=== PATIENT | male | born 1985 | race Caucasian/White ===

== ENCOUNTER 2025-04-14 16:34 | Emergency (ER) | payer OTHER, SELFPAY ==
[2025-04-14 16:34] VITALS: BP 119/78; PULSE 60; RESP 18; TEMP 36.1; O2SAT 99
--- NOTE | 2025-04-14 16:41 | ED.GENADULT ---
HPI - General Adult General Chief complaint: Urogenital-Male Stated complaint: right testicular pain Time Seen by Provider: 04/14/25 16:40 Source: patient Mode of arrival: EMS Limitations: no limitations History of Present Illness HPI narrative: The patient is a 40-year-old male with a history of right lower abdominal pain radiating to the right testicle for the past several years. He has had an extensive workup that has been negative. This has included visits with a hernia specialist, as well as several abdominal ultrasounds and CT scans of the abdomen. He most recently so an orthopedic surgeon who requested MRI of the abdomen since there is concern about nerve impingement into the nerve that radiates into the right lower quadrant and testicular region. The patient's right testicular pain started 1.5 hours ago, at approximately 1500 today. He slid out of the car seat with shorts on. The skin of his testicle caught onto the car seat and exacerbated his pain in the right testicle. Feels that there is a lump in the right testicle which is different than the left. The right testicle is larger than the left. The pain continues. There is no urinary symptoms such as hematuria urgency frequency or dysuria. No history of STDs. He has not taken any pain medications. He comes to the ER via EMS. Related Data Allergies Allergy/AdvReac Type Severity Reaction Status Date / Time No Known Allergies Allergy Verified 04/14/25 16:44 Review of Systems Review of Systems: All systems reviewed & are unremarkable except as noted in HPI and below Constitutional: Constitutional: Denies chills, Denies excessive sweating, Denies fatigue, Denies fever(s), Denies headache(s) and Denies weakness Eyes: Eyes: Denies change in vision and Denies photophobia ENT: Denies dysphagia, Denies dizziness, Denies headache(s), Denies lip swelling, Denies nasal congestion, Denies sore throat and Denies tongue swelling Cardiovascular: Cardiovascular: Denies chest pain, Denies syncope, Denies rapid heart rate and Denies dyspnea Respiratory: Respiratory: Denies cough, Denies dyspnea and Denies wheezing Gastrointestinal: Gastrointestinal: Reports abdominal pain (chronic), Denies constipation, Denies dysphagia, Denies diarrhea, Denies nausea and Denies vomiting Genitourinary: Genitourinary: Denies hematuria, Denies dysuria, Denies urinary frequency and Denies urinary urgency Comments: right testicular pain with swelling. Musculoskeletal: Musculoskeletal: Denies back pain, Denies myalgias, Denies arthralgias, Denies joint swelling and Denies numbness Integumentary/Breasts: Skin/Breast: Denies pruritus, Denies erythema and Denies rash Neurologic: Denies confusion, Denies dizziness, Denies syncope, Denies headache(s), Denies focal weakness, Denies numbness and Denies weakness Psychiatric: Psychiatric: Denies anxiety and Denies confusion Endocrine: Endocrine: Denies excessive sweating and Denies fatigue Hematologic/Lymphatic: Hematologic/Lymphatic: Denies easy bleeding and Denies easy bruising Allergic/Immunologic: Allergic/Immunologic: Denies lip swelling, Denies tongue swelling and Denies wheezing Exam Const: General: healthy appearing, no acute distress, alert and well nourished Nutritional Appearance: well nourished Orientation/consciousness: patient oriented x3 Limitations: no limitations HENMT: Head: normal to inspection Ears: external ears normal Face/Nose/Sinus: normal facial exam Face and sinus: normal facial exam Mouth: Yes moist mucous membranes Throat: posterior oropharynx normal Eyes: Conjunctivae: conjunctivae normal Pupils: Equal, round and reactive pupils present EOM: EOMs intact bilaterally Neck: Neck: normal visual inspection and no meningeal signs Chest: Chest palpation & inspection: normal inspection of the chest and no tenderness Resp: Effort & Inspection: normal respiratory effort and not labored Auscultation: clear to auscultation bilaterally, no crackles, no rhonchi and no wheezes Cardio: Rate: regular rate Rhythm: regular rhythm Heart sounds: no murmurs GI: Inspection: non-distended GI Palp: Yes Soft to palpation, No Tenderness to palpation present (GI), No Guarding due to palpation present (GI) and No Rebound tenderness present : General: Yes no CVA tenderness Male General Exam: Yes normal external exam Penis: Yes normal penis Scrotum: scrotal swelling on the right (Tenderness and pain diffusely in the right testicle especially at the epididymis) Testes: Testes normal (On the left), epididymal tenderness on the right, testicular swelling on the right and testicular tenderness on the right Back/Spine/Pelvis: Back: no CVA tenderness Cervical Spine: No Cervical spine tenderness Thoracic/Lumbar Spine: No thoracic spinal tenderness Skin: General skin exam: normal color Rashes: no rashes Wounds: no wounds Neuro: General: patient oriented x3, moves all extremities, no meningeal signs, no focal motor deficits and CN's II-XI intact bilaterally Cranial nerves: Yes Equal, round and reactive pupils present Speech: normal speech Motor exam (neuro): 5/5 motor strength present throughout Sensory Exam: normal sensation Extrem: General: normal to inspection and no clubbing, cyanosis or edema Psych: Mental Status: mental status grossly normal Affect: normal affect Course Course Emergency Course: 40-year-old male with chronic subacute right lower quadrant abdominal pain that could be from pinched nerve since the abdominal workup with CT and ultrasound has been negative. He presents now with testicular pain since 1300. On exam, he has tenderness and swelling of the right testicle which is bigger than the left. This could be epididymitis. Need to rule out testicular torsion. No urinary symptoms. ciprofloxacin Tylenol and ibuprofen administered in the ER. I spoke to Dr. Anton your provider at [facility] accepted the patient for transfer for an ultrasound of the testicle. Urinalysis did not reveal any acute findings. The patient is agreeable with the plan. All questions answered. Vital Signs Vital signs: Vital Signs Temperature 36.1 C L 04/14/25 16:34 Pulse Rate 60 04/14/25 16:34 Respiratory Rate 18 04/14/25 16:34 Blood Pressure 119/78 04/14/25 16:34 Pulse Oximetry 99 04/14/25 16:34 Oxygen Delivery Room Air 04/14/25 16:34 Temperature 36.8 C 04/14/25 17:17 Pulse Rate 82 04/14/25 17:17 Respiratory Rate 18 04/14/25 17:17 Blood Pressure 142/62 H 04/14/25 17:17 Pulse Oximetry 99 04/14/25 17:17 Oxygen Delivery Room Air 04/14/25 17:17 Medical Decision Making Vital Signs Vital Signs: Vital Signs Temperature 36.1 C L 04/14/25 16:34 Pulse Rate 60 04/14/25 16:34 Respiratory Rate 18 04/14/25 16:34 Blood Pressure 119/78 04/14/25 16:34 Pulse Oximetry 99 04/14/25 16:34 Oxygen Delivery Room Air 04/14/25 16:34 Temperature 36.8 C 04/14/25 17:17 Pulse Rate 82 04/14/25 17:17 Respiratory Rate 18 04/14/25 17:17 Blood Pressure 142/62 H 04/14/25 17:17 Pulse Oximetry 99 04/14/25 17:17 Oxygen Delivery Room Air 04/14/25 17:17 Lab Data Labs: Lab Results 04/14/25 Range/Units 16:51 Urine Color Light yellow (Yellow) Urine Appearance Clear (Clear) Urine pH 7.5 (5.0-8.0) Ur Specific [place] 1.015 (1.010-1.020) Urine Protein Negative (Negative) Urine Glucose (UA) Negative (Negative) Urine Ketones Negative (Negative) Ur Blood (Man) Negative (Negative) Urine Nitrate Negative (Negative) Urine Bilirubin Negative (Negative) Urine Urobilinogen 0.2 (0.2-1.0) mg/dL Leukocyte Esterase Rfl Negative (Negative) TRAVIS/UL Discharge Plan Discharge Clinical Impression: Epididymitis, Pain in right testicle Patient Disposition: Acute Care Hospital Condition: Stable Patient Language: Czech Follow-up/Referrals: Sean العراقي M.D. [Primary Care Provider, [facility]] Time of Disposition: 17:00
[2025-04-14 17:02] LABS: Add Urine Microscopic? NO; Appearance Urine Clear (Clear); Glucose Urine UA Negative (Negative); Leukocyte Esterase Ur Negative LEU/UL (Negative); Nitrate Urine Negative (Negative); Specific Grav Ur 1.015 (1.010-1.020)
[2025-04-14] MEDS: IBUPROFEN 400 MG TABLET 800 MG PO (17:02)
[2025-04-14] MEDS: CIPROFLOXACIN 500 MG TAB PO (17:03)
[2025-04-14] MEDS: ACETAMINOPHEN 500 MG TABLET 1000 MG PO (17:03)
--- OUTSIDE RECORDS SUMMARY | 2025-04-14 17:07 | XMS_ITS | Clinical Summary ---
Author Organization [facility] Address [address] [place] [address] Care Team Providers Care Waiter/Waitress Captain Name Role Phone Sean العراقي MD Primary Care Provider [phone] Allergies Active Allergy Reactions Criticality Noted Date Comments Sulfamethoxazole-Trimethoprim Unknown 2018 Clindamycin Unknown 02/20/2019 Medications atorvastatin (LIPITOR) 10 MG tablet 01/31/2024 Active traZODone (DESYREL) 50 MG tablet TAKE 1 TABLET BY MOUTH NIGHTLY FOR SLEEP 01/28/2024 Active Active Problems Problem Noted Date Diagnosed Date Right kidney stone 08/31/2019 Overview (08/31/2019): 4mm per patient Right inguinal pain 08/31/2019 Cervical spine pain 12/23/2018 Resolved Problems Problem Noted Date Diagnosed Date Resolved Date Thyroid nodule 04/01/2018 08/31/2019 Encounters Date Type Department Care Team Description 04/06/2025 Telephone [facility] [address] [address] Justin Mendez DO Referral from Last 3 Months Immunizations Immunization Administration Dates Next Due Tdap (Boostrix) 02/20/2023 Family History Medical History Relation Comments Diabetes Father Hypertension Father spinal stenosis Father Depression Mother Mental Health Mother Relation Status Comments Father Mother Social History Tobacco Use Types Packs/Day Years Used Date Smoking Tobacco: Never Smokeless Tobacco: Never Tobacco Cessation:Counseling Given: Not Answered Alcohol Use Standard Drinks/Week Comments Yes 0 (1 standard drink = 0.6 oz pur e alcohol) rare AUDIT-C Answer Date Recorded Frequency of Alcohol Consumption Never 02/20/2019 Average Number of Drinks Not on file 019 Frequency of Binge Drinking Not on file 01/27 Sex and Gender Information Value Date Recorded Sex Assigned at Male 08/31/2019 9:29 AM PAST DUE ACCOUNTS CLERK Legal Sex Male 8:47 PM CDT Gender Identity Male 08/31/2019 9:29 AM PAST DUE ACCOUNTS CLERK Sexual Orientation Not on file Last Filed Vital Signs Vital Sign Reading Time Taken Comments Blood Pressure 143/94 11/08/2024 11:02 PM CDT Pulse 66 11/08/2024 11:02 PM CDT Temperature 36.8 C (98.2 F) 11/08/2024 11:02 PM CDT Respiratory Rate 16 11/08/2024 11:02 PM CDT Oxygen Saturation 97% 11/08/2024 11:02 PM CDT Inhaled Oxygen Concentration - - Weight 94.8 kg (209 lb) 11/08/2024 11:02 PM CDT Height 185.4 cm (6' 1) 11/08/2024 11:02 PM CDT Body Mass Index 27.57 11/08/2024 11:02 PM CDT Plan of Treatment Health Maintenance Due Date Last Done Comments Annual Physical 02/14/1988 Hepatitis C 2003 Hepatitis B Vaccines (1 of 3 - 19+ 3-dose series) 02/14/2004 HPV Vaccines (1 - 3-dose SCDM series) 02/14/2012 PHQ-2 (Physician [place]) 06/28/2024 COVID-19 Vaccine ( season) 2025 12/26/2021, 01/02/2021, 12/12/2020 Influenza Adult (#1) 2025 DTaP, Tdap and Td Vaccines (2 - Td or Tdap) 02/20/2033 02/20/2023, 02/02/1990, 04/08/1988, Additional history exists Hepatitis A Vaccines Aged Out No long er eligible based on patient's age to complete this topic Meningococcal B Vaccine Aged Out No l onger eligible based on patient's age to complete this topic Meningococcal Vaccine Aged Out No camilo vanessa eligible based on patient's age to complete this topic Pneumococcal Vaccine: Pediatrics (0 to 5 Years) and At-Risk Patients (6 to 49 Years) Aged Out No longer eligible based on patient's age to complete this topic RSV Immunizations Under 20 Months Aged Out No longer eligible based on patient's age to complete this topic Insurance [facility] MEDICAID Care Teams Waiter/Waitress Captain Relationship Specialty Start Date End Date Sean العراقي MD [address] [place] [phone] PCP - General FAMILY PRACTICE 08/18/22
--- OUTSIDE RECORDS SUMMARY | 2025-04-14 17:07 | XMS_ITS | Encounter Summary ---
Author Organization [facility] Address [facility] [place] [address] Care Team Providers Care Engineer/Conductor Name Role Phone Konstantin England MD Primary Care Provider [phone] Abhi Parry MD Primary Care Provider Sean العراقي MD Primary Care Provider Encounter Details Date Type Department Care Team (Late st Contact Info) Description 12/03/2018 Abstract [facility] CONVERSION [address] [place] [address] , Generic Conversion, Social History Tobacco Use Types Packs/Day Years Used Date Smoking Tobacco: Never Sex and Gender Information Value Date Recorded Sex Assigned at Male 08/31/2019 9:29 AM DELIVERER PHARMACY Legal Sex Male 8:47 PM CDT Gender Identity Male 08/31/2019 9:29 AM DELIVERER PHARMACY Sexual Orientation Not on file documented as of this encounter Plan of Treatment Not on file documented as of this encounter Visit Diagnoses Not on filedocumented in this encounter Additional Health Concerns Infection Onset Date Last Indicated Resolved Time COVID-19 Rule Out 12/18/2019 12/18/2019 12/19/2019 9:15 AM CDT COVID-19 Rule Out 11/20/2020 11/20/2020 11/20/2020 1:43 PM CDT COVID-19 Rule Out 11/13/2021 11/13/2021 11/13/2021 4:37 AM CDT COVID-19 Rule Out 04/24/2024 04/24/2024 04/24/2024 10:23 PM CDT Rhinovirus 04/24/2024 04/24/2024 05/04/2024 12:3 2 AM DELIVERER PHARMACY documented as of this encounter Care Teams Engineer/Conductor Relationship Specialty Start Date End Date Konstantin England MD [address] [place] [phone] PCP - General FAMILY PRACTICE 12/20/18 11/14/20 Abhi Parry MD [address] [place] [phone] PCP - General FAMILY PRACTICE 11/15/20 08/17/22 Sean العراقي MD [address] [phone] PCP - General FAMILY PRACTICE 08/18/22 documented as of this encounter
[2025-04-14 17:17] VITALS: BP 142/62; PULSE 82; RESP 18; TEMP 36.8; O2SAT 99
== END 2025-04-14 17:30 | disposition short-term general hospital (02) ==
LOC: CHSED 17:05
PROVIDERS: Emergency Provider Emergency Medicine; PCP Family Medicine
DX: N45.1 Epididymitis (principal)
CPT/HCPCS: 81003; 99284; 99285; A9270

== ENCOUNTER 2025-04-14 18:04 | Emergency (ER) | payer OTHER, SELFPAY ==
--- NOTE | ~2025-04-14 | US_ITS ---
EXAMINATION: US scrotum doppler, 04/14/2025 18:28 CDT HISTORY: r testicular pain, r/o torsion Comparison: None Technique: Luna-scale and color Doppler images were obtained of the testes with spectral analysis to document arterial and venous flow. Findings: Right Testicle:Right testicle 4.1 x 2.7 x 3.1 cm, normal parenchyma, normal flow. Right Epidiymis:The right epididymis appears enlarged with slightly increased flow. Left Testicle: Left testicle 4.1 x 2.2 x 3.3 cm, normal parenchyma, normal flow. Left Epidiymis: Unremarkable. Normal flow. Hydrocele: A small simple appearing right hydrocele. . Varicocele: None Scrotum: Unremarkable. No skin thickening. Impression: Right epididymitis. No abscess identified. Negative for torsion Reviewed, dictated and finalized at location P. Impression: Right epididymitis. No abscess identified. Negative for torsion
[2025-04-14 17:57] VITALS: BP 143/93; PULSE 62; RESP 16; TEMP 36.5; O2SAT 100
--- NOTE | 2025-04-14 18:18 | ED_ITS ---
HPI - Male Genitourinary General Chief complaint: Urogenital-Male Stated complaint: r/o torsion Source: patient Mode of arrival: EMS Limitations: no limitations History of Present Illness HPI Narrative: This is a 40-year-old male with history of primary hyperparathyroidism who presents to the ED for testicular pain. Patient states that for the past couple days he has been having right testicular pain that has gradually been worsening. He states 5 hours ago, he was leaning over his kids carseat when he had sudden worsening of his right testicular pain that doubled him over. He was seen at outside ED and states he was sent here for further evaluation for concerns for a testicular torsion. He does report right lower quadrant pain that radiates into his right testicle. Denies dysuria, hematuria. Related Data Allergies Allergy/AdvReac Type Severity Reaction Status Date / Time clindamycin AdvReac Intermediate Diarrhea Verified 04/14/25 18:18 sulfamethoxazole (From AdvReac Intermediate Diarrhea Verified 04/14/25 18:18 Bactrim) trimethoprim (From Bactrim) AdvReac Intermediate Diarrhea Verified 04/14/25 18:18 Review of Systems Review of Systems: Gen.: Denies fevers or chills Eyes: Denies eye pain or visual change ENT: Denies congestion Respiratory: Denies shortness of breath or cough CV: Denies chest pain or palpitations GI: As per HPI as per HPI Musculoskeletal: Denies back pain or muscle pain Neuro: Denies numbness, tingling, weakness or focal weakness Skin: Denies rash Except as documented, all other systems reviewed and negative Exam Narrative: APPEARANCE: No acute distress, nontoxic, resting in bed EYES: EOMI HEENT: Normocephalic, atraumatic, OMM RESPIRATORY: No respiratory distress Clear to auscultation bilaterally with no rhonchi wheezing or rales. CARDIOVASCULAR: Regular rate and rhythm without murmurs rubs or gallops. ABDOMINAL: Soft, nontender, nondistended, no rebound or guarding : Right testicle is swollen and elevated compared to the left, there is tenderness to the inferior portion of this MUSCULOSKELETAl: Moves all extremities. No clubbing, cyanosis or edema. NEURO: Awake and alert. Following commands, speech normal, no focal deficits SKIN:: Warm, dry. No rashes lesions or abrasions PSYCHIATRIC: Normal affect/mood, Course Vital Signs Vital signs: Vital Signs Temperature 97.7 F 04/14/25 17:57 Pulse Rate 62 04/14/25 17:57 Respiratory Rate 16 04/14/25 17:57 Blood Pressure 143/93 H 04/14/25 17:57 Pulse Oximetry 100 04/14/25 17:57 Oxygen Delivery Room Air 04/14/25 17:57 Temperature 97.7 F 04/14/25 17:57 Pulse Rate 86 04/14/25 19:56 Respiratory Rate 18 04/14/25 19:56 Blood Pressure 150/85 H 04/14/25 19:56 Pulse Oximetry 99 04/14/25 19:56 Oxygen Delivery Room Air 04/14/25 17:57 MDM - Male Genitourinary MDM Narrative Medical decision making narrative: 40-year-old male presenting for right testicular pain. Patient was initially seen at outside ED and and there was concerns for torsion. Patient was started on ciprofloxacin for coverage up epididymitis. In this ED, he did have a swollen, erythematous, tender right testicle. Ultrasound right testicle was obtained that showed no evidence of torsion, was consistent with epididymitis. Patient will be started on Levaquin for epididymitis. He will be given a prescription for [place]mo for worsening pain. He has a urologist at home but he was given referral to Dr. Pinon, urology at [place], in the event he cannot follow up with his. Patient was agreeable to this plan. Given strict return precautions. Differential Diagnosis Differential diagnosis: Likely other (testicular torsion, epididymitis, hydrocele, varicocele) Medical Records Attestation: I reviewed the patient's medical records. Imaging Data Attestation: I personally reviewed and interpreted this imaging study as follows: (Scrotum ultrasound: Patent blood flow to the bilateral testes) Radiologist's impression: Impressions Scrotum Ultrasound 04/14/25 19:17 Impression: Right epididymitis. No abscess identified. Negative for torsion Discharge Plan Discharge Clinical Impression: Epididymitis Patient Disposition: Home Condition: Stable Instructions: Antibiotic Form, Epididymitis (ED) Additional Instructions: Take levofloxacin as prescribed. Take Tylenol ibuprofen for pain. Take [place]mo as prescribed for severe pain. Follow-up with your urologist or with , urology at [place], in the next week for reevaluation. Return to the ED for new or worsening symptoms. Patient Language: Kazakh Prescriptions: New levofloxacin 500 mg tablet 500 mg PO DAILY Qty: 10 0RF hydrocodone-acetaminophen 5-325 mg tablet 1 tablet PO Q8H PRN (Reason: pain) Qty: 12 0RF Follow-up/Referrals: Sean العراقي M.D. [Primary Care Provider, Family Practice] Brett Pinon MD [Physician, Urology]
--- OUTSIDE RECORDS SUMMARY | 2025-04-14 18:22 | XMS_ITS | Clinical Summary ---
Author Organization [facility] Address [address] [place] [address] Care Team Providers Care Vehicle Care Specialist Name Role Phone Sean العراقي MD Primary Care Provider [phone] Allergies Active Allergy Reactions Criticality Noted Date [...] Type Department Care Team Description 04/06/2025 Telephone [facility] [address] [address] Justin Mendez DO Referral from Last 3 [...] Sex Assigned at Male 08/31/2019 9:29 AM CUSTOMER DATA TECHNICIAN Legal Sex Male 8:47 PM CDT Gender Identity Male 08/31/2019 9:29 AM CUSTOMER DATA TECHNICIAN Sexual Orientation Not on file Last Filed [...] - 3-dose SCDM series) 02/14/2012 PHQ-2 (Physician [place]) 06/28/2024 COVID-19 Vaccine ( season) 2025 12/26/2021, [...] patient's age to complete this topic Insurance [facility] MEDICAID Care Teams Vehicle Care Specialist Relationship Specialty Start Date End Date Sean العراقي MD [address] [place] [phone] PCP - General FAMILY PRACTICE 08/18/22
--- OUTSIDE RECORDS SUMMARY | 2025-04-14 18:22 | XMS_ITS | Encounter Summary ---
Author Organization [facility] Address [facility] [place] [address] Care Team Providers Care Car Cleaner Name Role Phone Konstantin England MD Primary Care Provider [phone] Abhi Parry MD Primary Care Provider Sean العراقي MD Primary Care Provider Encounter Details Date Type Department Care Team (Late st Contact Info) Description 12/03/2018 Abstract [facility]FL CONVERSION [address] [place] [address] , Generic Conversion, Social History Tobacco Use Types Packs/Day Years Used Date Smoking Tobacco: Never Sex and Gender Information Value Date Recorded Sex Assigned at Male 08/31/2019 9:29 AM POWER SAW MECHANIC Legal Sex Male 8:47 PM CDT Gender Identity Male 08/31/2019 9:29 AM POWER SAW MECHANIC Sexual Orientation Not on file documented as [...] Rhinovirus 04/24/2024 04/24/2024 05/04/2024 12:3 2 AM POWER SAW MECHANIC documented as of this encounter Care Teams Car Cleaner Relationship Specialty Start Date End Date Konstantin England MD [address] [place] [phone] PCP - General FAMILY PRACTICE 12/20/18 11/14/20 Abhi Parry MD [address] [place] [phone] PCP - General FAMILY PRACTICE 11/15/20 08/17/22 Sean العراقي MD [address] [place] [phone] PCP - General FAMILY PRACTICE 08/18/22 documented as of this encounter
[2025-04-14] MEDS: KETOROLAC 30 MG/ML VIAL (*BKC) IM (18:25)
[2025-04-14] MEDS: oxyCODONE HCL (*CRX) 5 MG TAB IR PO (19:50)
[2025-04-14 19:56] VITALS: BP 150/85; PULSE 86; RESP 18; O2SAT 99
== END 2025-04-14 19:57 | disposition home or self-care (01) ==
PROVIDERS: Emergency Provider Student in an Organized Health Care Education/Training Program; PCP Family Medicine
DX: N45.1 Epididymitis (principal); E21.3 Hyperparathyroidism, unspecified
CPT/HCPCS: 76870; 93976; 96372; 99284; A9270; J1885